=== PATIENT | female | born 1985 | race Two or more races ===

== ENCOUNTER 2018-10-17 19:33 | Emergency (ER) | payer MEDICAID, OTHER ==
[~2018-10-17] VITALS: Ht 157.5 cm; Wt 41.7 kg
--- NOTE | 2018-10-17 19:47 | NUR ---
DR LOCKWOOD IS AT THE BEDSIDE EVALUATING THE PT.
--- NOTE | 2018-10-17 19:53 | NUR ---
C FRANCOIS LAURA IS AT THE BEDSIDE FOR RECTAL EXAM
--- NOTE | 2018-10-17 20:20 | NUR ---
DPatient discharged to home in stable condition. Written and verbal after care instructions given. Patient verbalizes understanding of instruction AND RX. PT AMBULATED OUT WITH A STEADY GAIT. VSS. NAD NOTED.
[2018-10-17 20:21] VITALS: BP 128/73
== END 2018-10-17 20:31 | disposition home or self-care (01) ==
LOC: ER 19:33
DX: K64.4 Residual hemorrhoidal skin tags (principal); Z60.2 Problems related to living alone
CPT/HCPCS: 99282; J7030

== ENCOUNTER 2019-04-09 16:21 | Emergency (ER) | payer OTHER ==
[~2019-04-09] VITALS: Ht 157.5 cm; Wt 40.8 kg
--- NOTE | 2019-04-09 16:32 | NUR ---
PT AAOX4. AMBULATORY. C/O RLQ pain radiating to R flank x 3 days, 12/17. PT PLACED ON MONITOR AND PULSE OX. GERRY PAYAN DISTRES NOTED. VSS. AWAITING MD FOR EVAL.
[2019-04-09] MEDS ORDERED: IV NS 0.9% 1,000 ML BAG IV ONE (17:00)
[2019-04-09] MEDS ORDERED: KETOROLAC TROMETHAMINE INJ 30 MG/ML VIAL IV ONE (17:00)
--- NOTE | 2019-04-09 17:00 | NUR ---
URINE COLLECTED AND SENT TO LAB
--- NOTE | 2019-04-09 17:00 | NUR ---
LABS COLLECTED AND SENT TO LAB
[2019-04-09 17:02] LABS: BASOPHILS # (AUTO) 0.1 /CMM (0.0-0.2); BASOPHILS % (AUTO) 0.6 % (0.0-2.0); EOSINOPHILS % (AUTO) 0.6 % (0.0-6.0); HEMATOCRIT 34 % (33-45); HEMOGLOBIN 11.5 g/dL (11.5-14.8); LYMPHOCYTES # (AUTO) 2.2 /CMM (0.8-4.8); LYMPHOCYTES % (AUTO) 24.3 % (20.0-44.0); MEAN CORPUSCULAR HGB CONC 34 g/dl (31.0-36.0); MEAN CORPUSCULAR VOLUME 89 fL (82-100); MONOCYTES # (AUTO) 0.5 /CMM (0.1-1.30); MONOCYTES % (AUTO) 5.4 % (2.0-12.0); NEUTROPHILS # (AUTO) 6.2 /CMM (1.8-8.9); NEUTROPHILS % (AUTO) 69.1 % (43.0-81.0); PLATELET COUNT (AUTO) 237 /CMM (150-450); RED BLOOD CELL COUNT(AUTO) 3.84 MIL/uL (4.0-5.2); WHITE BLOOD COUNT (AUTO) 9.1 K/uL (4.3-11.0)
[2019-04-09 17:03] LABS: APPEARANCE,URINE Clear (CLEAR); BILIRUBIN,URINE Negative (NEGATIVE); BLOOD, URINE Negative Ery/uL (NEGATIVE); COLOR,URINE Yellow (YELLOW); KETONES,URINE Negative (NEGATIVE); LEUKOCYTE ESTERASE ,URINE Negative (NEGATIVE); NITRITE, URINE Negative (NEGATIVE); PH,URINE 6.5 (5.0-8.0); PROTEIN,URINE Negative (NEGATIVE); UGLUCOSE Negative (NEGATIVE); UROBILINOGEN,URINE 0.2 EU/dL (0.2)
--- NOTE | 2019-04-09 17:10 | NUR ---
US AT BEDSIDE
[2019-04-09 17:20] LABS: BILIRUBIN,DIRECT 0.1 mg/dL (0.0-0.2); BILIRUBIN,TOTAL 0.4 mg/dL (0.2-1.0); CALCIUM, SERUM 9.3 mg/dL (8.5-10.1); CREATININE 0.7 mg/dL (0.6-1.3); TOTAL PROTEIN, SERUM 7.1 g/dL (6.4-8.2)
[2019-04-09 18:19] VITALS: BP 116/64
--- NOTE | 2019-04-09 18:24 | NUR ---
IV removed. Catheter intact and site benign. Pressure and 4x4 applied to site. No bleeding noted.
--- NOTE | 2019-04-09 18:25 | NUR ---
Patient discharged to home in stable condition. Written and verbal after care instructions given. Patient verbalizes understanding of instruction and RX. PT ambulatory with a steady gait.
== END 2019-04-09 18:26 | disposition home or self-care (01) ==
LOC: ER 16:26
DX: N83.201 Unspecified ovarian cyst, right side (principal); Z98.890 Other specified postprocedural states; Z60.2 Problems related to living alone
CPT/HCPCS: 36415; 76856; 80048; 80076; 81001; 83690; 84703; 85025; 96374; 99284; J7030; 81000-TC